=== PATIENT | female | born 1945 | race Caucasian/White ===

== ENCOUNTER → 2021-05-14 | Day surgery (SDC) | payer OTHER ==
[~2021-05-14] VITALS: Ht 160 cm; Wt 80.7 kg
[~2021-05-14] MED LIST: ASA81BEC PO; HYDREA 500 MG500 M1 PO; LEVOTHYROXINE88 MCG PO; LISINOPRIL-HCT1 EAC1 PO; OMEPRAZOLE 20 M20 M1 PO
[2021-05-14 13:32] LABS: CALCIUM 9.2 mg/dL (8.5-10.1); CREATININE 0.9 mg/dL (0.6-1.0); POTASSIUM 3.8 mmol/L (3.5-5.1)
[2021-05-14 14:01] VITALS: BP 120/82
--- NOTE | 2021-05-15 17:07 | PATH ---
[facility] [address] [place] [address] PATHOLOGY RPT PROCEDURE Name: LUDY ALVAREZ Room #: REG [facility] [place] M.R.#: [id number] Admission: 05/14/21 Date of : 49 Discharge: Report #: [id number] Path Case #: [id number] [facility] Accession Number: [id number] . 01 Material submitted: . lid - BASAL CELL CARCINOMA LEFT LOWER LID-FS. Modifiers: left, lower . 01 Clinical history: . BCC OF SKIN OF LEFT LOWER LID, INCLUDING CANTHUS EXCISION BASAL CELL CARCINOMA DC 05/14/EXCISION BASAL CELL CARCINOMA . 02 Frozen section diagnosis: . INTRAOPERATIVE CONSULTATION WITH FROZEN SECTION: (Dr. Joleen Arzate) . FSA1. Basal cell carcinoma, left lower lid, re-excision: - Residual basal cell carcinoma. - Margins are negative. . Report was relayed to Dr. Pablo by Dr. Joleen Arzate on 05/14/2021. A written report is placed in the patient's chart. (ANK:mmpascale; 05/14/2021) . . FROZEN SECTION GROSS DESCRIPTION: Received fresh from the operating room, labeled, "Ludy Alvarez - Basal cell carcinoma, left lower lid" is a skin ellipse which measures 1.0 x 0.6 x 0.5 cm. The specimen is oriented per the surgeon as superior, lateral, inferior and medial and subsequently inked by the pathologist as follows: Medial to lateral margin is black, lateral to inferior margin is blue, and inferior to medial margin is red. The specimen is subsequently sectioned and submitted entirely in FSA1 and then in formalin in block A1. (ANK:laisha; 05/14/2021) . . Frozen section performed at [facility], [address] [place] [address]. CELESTE/JERRY . 01 Diagnosis: Skin, left lower lid, biopsy: - Residual invasive basal cell carcinoma, completely excised. (SHA:tacho; 05/15/2021) MBR 05/15/2021 1439 Local . 01 Electronically signed: . [facility] [address] [place] [address] PATHOLOGY RPT PROCEDURE Name: LUDY ALVAREZ Room #: REG [facility] [place] Juvenal#: [id number] Admission: 05/14/21 Date of : 49 Discharge: Report #: [id number] Path Case #: [id number] Sage Osborn MD, Pathologist NPI- [id number] . 01 Gross description: . PLEASE SEE FROZEN SECTION GROSS DESCRIPTION /QLM 05/15/2021 1026 Local . 01 Pathologist provided ICD-10: C44.1192 . 01 CPT . 744678, [id number] Specimen Comment: A courtesy copy of this report has been sent to [phone] Specimen Comment: [phone] Specimen Comment: Report sent to / dr henao Performed at: [address], [place] [id number] MD Sage Osborn MD Phone: [phone] Performed at: [address] [id number] MD Laverne Glasgow MD Phone: [phone]
--- NOTE | 2021-05-18 06:19 | O ---
[facility] [place] [address] OPERATIVE REPORT Name: LUDY JOSHUA Room #: REG [facility] [place] [facility] [place] M..#: [id number] Admission: 05/14/21 Attend Phys: Sp Pablo MD Discharge: Date of : 49 Report #: [id number] THIS REPORT FOR: cc: Sp Childress MD, William G. MD White, William L. MD ~ cc: Sp Childress MD DATE OF SERVICE: 05/14/2021 PREOPERATIVE DIAGNOSIS: Basal cell carcinoma of left lower lid lateral canthus and cheek. POSTOPERATIVE DIAGNOSIS: Basal cell carcinoma of left lower lid lateral canthus and cheek. PROCEDURE: Excision of basal cell carcinoma of left lower lid lateral canthus and cheek with frozen section control of margins and myocutaneous flap repair of defect. SURGEON: Sp Pablo MD BOX FABRICATOR: None. ANESTHESIA: MAC. COMPLICATIONS: None. INDICATIONS FOR SURGERY: This pleasant 75-year-old woman has a biopsy-proven basal cell carcinoma in her lateral left lower lid, extending through the canthus and onto her cheek and infratemporal fossa. She presents today for excision of this lesion with subsequent reconstruction of that defect after frozen sections confirmed tumor extirpation. Informed consent was obtained to include, but not limited to the potential risk for loss of vision, bleeding, infection, failure to improve the problem, the potential need for further surgery or treatment. DESCRIPTION OF PROCEDURE: The patient was taken to the operating room, where 2% Xylocaine with epinephrine mixed with equal parts 0.75% Marcaine with Wydase was administered to the left lower lid, the left lateral canthus, the left cheek and the left infratemporal fossa going both transcutaneously and transconjunctivally. The patient was subsequently prepped and draped in the usual sterile fashion. A fine tip skin marking pen was then utilized to outline the lesion including approximately 2 mm of normal appearing tissue. The incisions were then made with a Denise scissor and the lesion removed in one piece. The specimen was then oriented on a drawing for the waiting pathologist. [address] [address] OPERATIVE REPORT Name: BOWENCLEMENTINALUDY Room #: REG [facility] [place] M.R.#: [id number] Admission: 05/14/21 Attend Phys: Sp Pablo MD Discharge: Date of : 49 Report #: [id number] Hemostasis having been achieved, we waited for the pathologist to look at the frozen sections. She advised that the basal cell carcinoma had been completely excised and our margins were clear. Reconstructive options were contemplated and a myocutaneous flap was subsequently chosen for the reconstruction. The left lateral canthus was then clamped with a Melendrez clamp. Sharp canthotomy and cantholysis was then performed. A tarsal strip was then prepared, removing the lash bearing portion of the redundant lid margin and the redundant tarsal plate. The tarsal strip was then resuspended to the internal portion of the lateral orbital tubercle. Wide undermining was then undertaken laterally to allow tissue to be rotated inferomedially. Hemostasis was then re-achieved. That flap was then advanced and secured with interrupted buried 5-0 Prolene sutures deep and then a skin closure of 6-0 plain. The wounds were then cleaned and dressed with erythromycin ophthalmic ointment. The patient subsequently transported to the recovery area having tolerated the procedures well with no anesthetic or operative complications being noted. <ELECTRONICALLY SIGNED> By: Sp Pablo MD 05/18/21 0619 1521 1554 Sp Pablo MD /nt
== END | disposition home or self-care (01) ==
LOC: OR 08:51
PROVIDERS: ATTEND Ophthalmology
DX: C44.1192 Basal cell carcinoma of skin of left lower eyelid, including canthus (principal); I10 Essential (primary) hypertension; E03.9 Hypothyroidism, unspecified; K21.9 Gastro-esophageal reflux disease without esophagitis; Z98.890 Other specified postprocedural states; Z79.899 Other long term (current) drug therapy; Z96.653 Presence of artificial knee joint, bilateral; Z98.41 Cataract extraction status, right eye; Z98.42 Cataract extraction status, left eye; Z79.82 Long term (current) use of aspirin
CPT/HCPCS: 50010; 50101; 50386; 50398; 51636; 56531; 62110; 62850; 70005